=== PATIENT | female | born 1990 | race Caucasian/White ===

== ENCOUNTER 2020-04-13 11:13 | Outpatient (REF) | payer OTHER, SELFPAY ==
[2020-04-13 11:38] LABS: COVID-19 Test Negative (Negative)
== END 2020-04-13 11:14 | disposition home or self-care (01) ==
LOC: HO.EMPCOV 11:13
PROVIDERS: Visit Provider Internal Medicine
DX: Z20.828 Contact with and (suspected) exposure to other viral communicable diseases (principal)
CPT/HCPCS: 87635; C9803

== ENCOUNTER 2020-07-09 09:56 | Outpatient (REF) | payer OTHER, SELFPAY ==
[2020-07-09 10:13] LABS: COVID-19 Test Negative (Negative)
== END 2020-07-09 09:57 | disposition home or self-care (01) ==
LOC: HO.EMPCOV 09:56
PROVIDERS: Visit Provider Internal Medicine
DX: Z20.822 Contact with and (suspected) exposure to COVID-19 (principal)
CPT/HCPCS: 36415; 87635; C9803